=== PATIENT | female | born 1970 | race Caucasian/White ===

== ENCOUNTER 2016-11-24 16:30 | Inpatient (IN) | payer MEDICARE ==
[~2016-11-24] VITALS: Ht 160 cm; Wt 49.1 kg
--- NOTE | ~2016-11-24 | OP ---
PATIENT NAME: ANNELIESE MULLER MEDICAL RECORD: [id number] :68 LOCATION:D. D.2101 ADMISSION DATE:11/24/16 SURGEON: LINO GAGE MD DATE OF OPERATION: 11/27/2016 PREOPERATIVE DIAGNOSES: Hemorrhage, anemia, malfunctioning left upper extremity AV access. POSTOPERATIVE DIAGNOSES: Hemorrhage anemia, malfunctioning left upper extremity AV access. PROCEDURES: Insertion of tunneled 19-cm hemodialysis catheter via right internal jugular vein, ultrasound and fluoroscopic guidance. SURGEON: Lino Gage MD TEENAGE PROGRAM DIRECTOR: ANESTHESIA: General via LMA. IMPLANTATION: A 19-cm HemoSplit hemodialysis catheter. DISPOSITION: Awake to PACU. INDICATIONS FOR THE PROCEDURE: Mrs. Muller is a 46-year-old female with a history of metastatic cervical cancer, who underwent radiation therapy in the past. She developed a colonic fistula, which was taken down in [place] over the past year. She has developed a GI hemorrhage along with weakness and fatigue and was being treated in the hospital. She unfortunately developed a malfunction with her left upper extremity AV fistula and in order for her to gain durable hemodialysis access, a catheter was needed. The risks, alternatives and benefits were discussed. Her fistulas are in her left upper extremity, therefore, we decided to place into the right chest. Our hope is that we can rescue her AV fistula, either with a hybrid procedure or a new access placement. PROCEDURE IN DETAIL: After positive identification, informed consent was obtained, the patient in the operating room, laid supine on the operating table. Monitoring lines included EKG pads and a blood pressure cuff. General anesthesia was induced via LMA intubation. Antibiotics were ongoing. Dr. Ruelas from gynecology did an exam under anesthesia in the lithotomy position. Once this procedure was terminated, the patient was placed in a supine position. The neck was prepped and draped in a 2-stage process with alcohol and chlorhexidine to minimize infection. Towels were placed. The drape was placed. Surgical timeout was performed and all members agreed to proceed. We began the procedure by placing the patient in Trendelenburg position. After this was done, utilizing ultrasound, the right internal jugular vein was localized. She was quite dry. A little bit more Trendelenburg was used and this was accessed with Seldinger technique with one stick. Guidewire was placed into the central system. Next, a 19-cm HemoSplit catheter was brought to the field and after 2 new towels were placed on the chest, the catheter was laid upon the chest wall and the tip was placed in the upper part of the right atrium. An exit site was placed. The catheter was tunneled from the exit site to the Seldinger site. We next dilated the tract from the Seldinger site to the OPERATIVE REPORT [id number] ANNELIESE MULLER central system in sterile fashion. After this, the peel-away sheath were placed and the HemoSplit catheter was placed down to the central system. It flushed well with brisk and without issues. The catheter was then visualized on fluoroscopy and manipulated to ensure that there was a smooth course without any evidence of kinking. The cuff was subdermal. We next affixed the catheter to the skin with Dermalon in standard fashion. The catheter was then flushed again and briskly returned blood and aspirated without any issues. It was then hep-locked in standard fashion intact. The Seldinger site was closed in 2 layers, first layer with Monocryl and skin glue and then a dressing on top. Mrs. Muller was awakened from anesthesia without incident. All sponge, instrument, needle counts were reported to be correct. TRANSINT:[id number] Voice Confirmation ID: [id number] DOCUMENT ID: [id number] LINO GAGE MD CC: [id number] DICTATION DATE: 11/27/161416 JAR FILLER: 11/27/162111 ADM IN [facility] [address] [place] [address]
--- NOTE | 2016-11-24 16:30 | NUR ---
1615 RECEIVED PATIENT TO ROOM 2132 VIA RODNEY FROM [facility] IN [facility]. PATIENT ALERT/ORIENTED, RESP EVEN AND UNLABORED. PATIENT TRANSFERED HERE DUE TO DIALYSIS WAS UNABLE TO ACCESS FISTULA IN LEFT ARM. AT BEDSIDE AT THIS TIME EXAMINING FISTULA TO LEFT ARM. PATIENT ABLE TO PROVIDE HX FOR . ASSESSMENT COMPLETE AT THIS TIME. CALL LIGHT PLACED WITHIN REACH. SKIN - BUTTOCKS AND SACRUM/COCCYX AREA RED, SLIGHT EXCORIATION NOTED. REDNESS IS BLANCHABLE. PATIENT WEARS BRIEFS DUE TO STRESS INCONTINENCE. NO DISRESS.
[2016-11-24 16:40] VITALS: BP 114/62; BMI 16.6
[2016-11-24] MEDS ORDERED: FLAGYL250 MG PO (17:20)
[2016-11-24] MEDS ORDERED: FLORANEX / LACT1 TAB PO (17:20)
[2016-11-24] MEDS ORDERED: MERREM 500 MG/500 MG IV (17:21)
[2016-11-24] MEDS ORDERED: LOVENOX30 MG/0.3 SC (17:21)
[2016-11-24] MEDS ORDERED: LEVAQUIN500 MG PO (17:21)
[2016-11-24] MEDS ORDERED: CELEXA10 MG PO (17:22)
[2016-11-24] MEDS ORDERED: IPRAT-ALBUT 0.5-3 ML UPD (17:22)
[2016-11-24] MEDS ORDERED: BUMEX2 MG PO (17:23)
[2016-11-24] MEDS ORDERED: PROTONIX40 MG PO (17:23)
[2016-11-24] MEDS ORDERED: GABAPENTIN100 MG PO (17:26)
[2016-11-24] MEDS ORDERED: MEGACE400 MG/10 PO (17:26)
[2016-11-24] MEDS ORDERED: OXYCODONE HCL E20 MG PO (17:26)
[2016-11-24] MEDS ORDERED: FOLIC ACID1 MG PO (17:27)
[2016-11-24] MEDS ORDERED: METOPROLOL TART25 MG PO (17:27)
[2016-11-24] MEDS ORDERED: VITAMIN B-121000 MCG PO (17:27)
[2016-11-24] MEDS ORDERED: REQUIP0.5 MG PO (17:28)
[2016-11-24] MEDS ORDERED: COLACE100 MG PO (17:28)
[2016-11-24] MEDS ORDERED: MIDODRINE HCL5 MG PO (17:29)
[2016-11-24] MEDS ORDERED: MEPHYTON5 MG PO (17:29)
[2016-11-24] MEDS ORDERED: SYNTHROID100 MCG PO (17:30)
[2016-11-24] MEDS ORDERED: NEPHRO-VITE RX1 TAB PO (17:30)
[2016-11-24] MEDS ORDERED: FLAXSEED OIL1000 MG PO (17:30)
[2016-11-24] MEDS ORDERED: TUMS500 MG PO (17:30)
[2016-11-24] MEDS ORDERED: RENAGEL800 MG PO (17:31)
[2016-11-24] MEDS ORDERED: MULTIPLE VITAMI1 TA1 PO (17:31)
--- NOTE | 2016-11-24 18:27 | NUR ---
RESTING IN BED, CONSUMING PM MEAL AT THIS TIME. CALL LIGHT WITHIN REACH. DENIES NEEDS. NO DISTRESS.
[2016-11-24 18:52] LABS: ANION GAP 18.2 mmol/L (8-16); CALCIUM 8.8 mg/dL (8.5-10.1); CARBON DIOXIDE 18.8 mmol/L (21.0-32.0); CREATININE - SERUM 8.8 mg/dL (0.6-1.3)
--- NOTE | 2016-11-24 19:38 | NUR ---
INITIAL ROUNDS COMPLETED. PT DENIES ANY DISCOMFORT. WILL CONTINUE TO MONITOR.
[2016-11-24 21:20] VITALS: BP 105/41
--- NOTE | 2016-11-24 23:30 | NUR ---
ASSESSMENT COMPLETED AT 2009 HRS. PT DENIED ANY DISCOMFORT. VSS. IV TO R WRIST SL. LAVF WITH GOOD BRUIT AND THRILL. L LOWER ABD COLOSTOMY NOTED. LUNGS DIMINISHED IN BASES BILAT. ELIZALDE. PM MEDS GIVEN. PT CURRENTLY RESTING WITH EYES CLOSED. RESP EVEN AND REGULAR. SR UP X2, CALL LIGHT WITHIN REACH.
[2016-11-25 00:30] VITALS: BP 124/50
--- NOTE | 2016-11-25 01:18 | NUR ---
PT RESTING WITH EYES CLOSED. RESP EVEN AND REGULAR. SR UP X2, CALL LIGHT WITHIN REACH.
--- NOTE | 2016-11-25 02:34 | NUR ---
PT RESTING WITH EYES CLOSED. RESP EVEN AND REGULAR. SR UP X2, CALL LIGHT WITHIN REACH.
[2016-11-25 04:30] VITALS: BP 119/50
--- NOTE | 2016-11-25 04:40 | NUR ---
PT AWAKE; DENIES ANY DISCOMFORT. WILL CONTINUE TO MONITOR.
--- NOTE | 2016-11-25 06:35 | NUR ---
VSS THROUGHOUT NIGHT. PT DENIED ANY DISCOMFORT. NEEDS MET; WILL CONTINUE TO MONITOR.
--- NOTE | 2016-11-25 07:20 | NUR ---
RESTING IN BED WITH NO COMPLAINTS AT PRESENT TIME. IN ENTERIC ISOLATION FOR C DIFF. PATIENT HAS BEEN INSTRUCTED THAT WE NEED STOOL SAMPLE. ON ROOM AIR. RIGHT WRIST SEEN WITH SALINE LOCK. LEFT AVF WITH + BRUIT AND THRILL. WILL CONTINUE TO MONITOR.
[2016-11-25 09:10] VITALS: BP 131/52
[2016-11-25 12:00] VITALS: BP 85/44
[2016-11-25 12:11] LABS: BASOPHILS 0.1 % (0.0-2.0); EOSINOPHILS 1.8 % (0-7); HEMOGLOBIN 8.7 g/dL (12-16); IMMATURE GRANULOCYTES 1.4 % (0-5); LYMPHOCYTES 8.4 % (15-50); MCH 30.7 pg (26.0-34.0); MCHC 31.1 g/dL (31.0-37.0); MCV 98.9 fL (80.0-100.0); MEAN PLATELET VOLUME 10.3 fL (7.4-10.4); NEUTROPHILS 83.3 % (40-80); PLATELET COUNT 128 10x3/uL (130-400); RBC 2.83 10x6/uL (4.00-5.40); RDW 14.4 % (11.5-14.5); WBC 9.5 10x3/uL (4.8-10.8)
[2016-11-25 12:31] LABS: ALBUMIN 2.7 g/dL (3.4-5.0); ANION GAP 20.5 mmol/L (8-16); BILIRUBIN - TOTAL 0.83 mg/dL (0.2-1.3); CALCIUM 9.1 mg/dL (8.5-10.1); CREATININE - SERUM 9.1 mg/dL (0.6-1.3); MAGNESIUM - SERUM 1.6 mg/dL (1.8-2.4); PHOSPHOROUS 4.2 mg/dL (2.5-4.9); POTASSIUM - SERUM 5.5 mmol/L (3.5-5.1); PROTEIN - SERUM 6.2 g/dL (6.4-8.2)
[2016-11-25 16:00] VITALS: BP 110/47
[2016-11-25 20:19] VITALS: BP 139/90
--- NOTE | 2016-11-25 22:20 | NUR ---
INITIAL ROUNDS COMPLETED AT 1920 HRS. PT DENIED ANY DISCOMFORT. ASSESSMENT COMPLETED AT 2020 HRS. VSS. IV TO R WRIST SL. LUNGS ESSENTILAAY CTA. COLOSTOMY LEAKING. NEW COLOSTOMY APPLIED AND STOOL SAMPLE SENT TO LAB. LARGE BLOT CLOTT APPROX SIZE OF A TANGERINE NOTED IN BRIEFS AND SMALL AMOUNT OF BLOOD OOZING FROM VAGINA PT CLEANED. STATES HAS NOT HAD A HYSTERECTOMY AND HAS NOT HD A PERIOD FOR APPROX 9 YS. PM MEDS GIVEN. BRIEF WITH SMALL BLOT CLOTS NOTED. PT CLEANED AND OB PAD PLACED WITH BRIEF. RENAL SERVICE ALLED AT 2215 HRS WITH Lupe JACKSON CAREER AND GUIDANCE COUNSELOR RETURNING CALL. INFORMED OF LARGE CLOTS IN STEFAN AREA. NEW ORDERS RECEIVED AND NOTED.
--- NOTE | 2016-11-25 22:50 | NUR ---
16FR JE[facility]APT[facility] PLACED WITH BLOOD RETURN. AWAITING LAB RESULTS. PT TOLERATED ACTIVITY WELL.
[2016-11-25 23:42] LABS: BASOPHILS 0.1 % (0.0-2.0); EOSINOPHILS 3.1 % (0-7); IMMATURE GRANULOCYTES 1.3 % (0-5); LYMPHOCYTES 9.9 % (15-50); MCH 31.1 pg (26.0-34.0); MCHC 32.3 g/dL (31.0-37.0); MCV 96.5 fL (80.0-100.0); MEAN PLATELET VOLUME 10.3 fL (7.4-10.4); MONOCYTES 4.9 % (2-11); NEUTROPHILS 80.7 % (40-80); PLATELET COUNT 151 10x3/uL (130-400); RBC 2.28 10x6/uL (4.00-5.40); RDW 14.4 % (11.5-14.5); WBC 9.1 10x3/uL (4.8-10.8)
[2016-11-25 23:43] LABS: HEMOGLOBIN 7.1 g/dL (12-16)
[2016-11-25 23:51] LABS: APTT 42.4 SECONDS (22.8-39.4); INR 1.36 (0.85-1.17); PROTIME 16.6 SECONDS (11.6-15.0)
[2016-11-26] VITALS (8 sets, daily range): BP systolic 91–138; BP diastolic 35–59; Ht 160 cm; Wt 49.1 kg
--- NOTE | 2016-11-26 00:31 | NUR ---
Lupe JACKSON POULTRY RAISER NOTIFIED OF LABS AND BLODD IN [facility]. NEW ORDERS RECEIVED AND NOTED. VIT K 10MG PO GIVEN. BLODD CONSENTS SIGNED. IV TO R WRIST DC'D WITH CATHETER INTACT. NEW IV STRTED #2O TO INNER R FA WITH ATTEMPT X1. PT TOLERATED ACTIVITY WELL. WILL CONTINUE TO MONITOR.
--- NOTE | 2016-11-26 01:48 | NUR ---
LAB CALLED AT 0040 AND 0145. INFORMED NEED TO GIVEN 2 UNITS PRBC'S MARY.
--- NOTE | 2016-11-26 02:20 | NUR ---
LAB HERE TO DRAW TYPE AND CROSSMATCH.
--- NOTE | 2016-11-26 04:17 | NUR ---
PT CONTINUES TO OOZE BLOOD AROUND JEAN-BAPTIST[facility]. BED LINENS CHANGED. VSS, 1ST UNIT OF PRBC'S INITIATED. WILL CONTINUE TO MONITOR.
--- NOTE | 2016-11-26 06:24 | NUR ---
VSS DURING BLOOD TRANSFUSION. NO REACTION NOTED. CONTINUES TO OOZE BLODD FRON STEFAN AREA. NEEDS MET; WILL CONTINUE TO MONITOR.
[2016-11-26 07:55] LABS: BASOPHILS 0.1 % (0.0-2.0); EOSINOPHILS 2.7 % (0-7); HEMOGLOBIN 7.8 g/dL (12-16); IMMATURE GRANULOCYTES 1.6 % (0-5); LYMPHOCYTES 10.8 % (15-50); MCH 30.6 pg (26.0-34.0); MCHC 32.5 g/dL (31.0-37.0); MEAN PLATELET VOLUME 10.3 fL (7.4-10.4); NEUTROPHILS 79.8 % (40-80); PLATELET COUNT 155 10x3/uL (130-400); RBC 2.55 10x6/uL (4.00-5.40); RDW 15.4 % (11.5-14.5)
[2016-11-26 08:02] LABS: MCV 94.1 fL (80.0-100.0); WBC 11.7 10x3/uL (4.8-10.8)
[2016-11-26 08:03] LABS: ANION GAP 21.2 mmol/L (8-16); CARBON DIOXIDE 16.4 mmol/L (21.0-32.0); CREATININE - SERUM 9.5 mg/dL (0.6-1.3); POTASSIUM - SERUM 5.6 mmol/L (3.5-5.1)
--- NOTE | 2016-11-26 09:30 | NUR ---
PT LEAVING FLOOR TO ATTEMPT DIALYSIS.
--- NOTE | 2016-11-26 10:30 | NUR ---
PATIENT PATHWAYS - Patient's in-center unit is [facility] on MWF 3rd shift. Medical records forwarded to the unit for their records. Will cont to monitor for further orders/needs regarding OPHD. BMM PRL
--- NOTE | 2016-11-26 10:56 | NUR ---
PT C/O SEVERE PELVIC/VAGINAL PAIN. PROVIDED PT WITH PRN OXYCONTIN. PT VOICED THANKS. PICKED UP PTS UNIT OF BLOOD AND BROUGHT TO DIALYSIS FOR THEM TO TRANSFUSE. PT DENIES ANY FURTHER NEEDS AT THIS TIME. WILL CTM.
--- NOTE | 2016-11-26 12:16 | NUR ---
RAPID RESPONSE CALLED DOWN IN DIALYSIS. TRANSFERRED PT BACK TO FLOOR. PT HERE NOW RR NONLABORED WITH BREATHING MASK ON NON REBREATHER @15L. 100% PULSE OX. BP 91/52 VIA R.ARM. HR 113. ORDERS BEING OBTAINED NOW. WILL CTM CLOSELY.
[2016-11-26 12:57] LABS: HEMATOCRIT 25.3 % (36.0-48.0); HEMOGLOBIN 8.3 g/dL (12-16); MCH 30.3 pg (26.0-34.0); MCHC 32.8 g/dL (31.0-37.0); MCV 92.3 fL (80.0-100.0); MEAN PLATELET VOLUME 10.7 fL (7.4-10.4); PLATELET COUNT 107 10x3/uL (130-400); RBC 2.74 10x6/uL (4.00-5.40); RDW 15.4 % (11.5-14.5); WBC 20.3 10x3/uL (4.8-10.8)
--- NOTE | 2016-11-26 13:05 | NUR ---
PT RESTING QUIETLY IN BEDSIDE CHAIR. REMOVED NONREBREATHER MASK ITS NOT NEEDED. RR NONLABORED ON RA. 100% O2SAT. HR 122. BP 98/55 VIA R.ARM. WILL CTM.
[2016-11-26 13:17] LABS: ANION GAP 16.2 mmol/L (8-16); CARBON DIOXIDE 20.8 mmol/L (21.0-32.0); CREATININE - SERUM 5.8 mg/dL (0.6-1.3)
[2016-11-26 13:27] LABS: LYMPHOCYTES 3 % (15-50); MONOCYTES 5 % (2-11); NEUTROPHILS 91 % (40-80); PLATELET ESTIMATE DECREASED
--- NOTE | 2016-11-26 14:35 | NUR ---
WAITING FOR RENAL TO CALL BACK REGARDING PTS STATUS. PT IS STABLE BUT STILL HYPOTENSIVE, HR TACHYCARDIC. WBC HAS INCREASED GREATLY. WILL CTM.
--- NOTE | 2016-11-26 15:04 | NUR ---
PAGED CONCRETE SAW OPERATOR RENAL AGAIN. STILL WAITING TO HEAR BACK.
--- NOTE | 2016-11-26 16:17 | NUR ---
BLOOD CULTURES BEING DRAWN AND US TECH AT BEDSIDE FOR TRANSVAGINAL TEST. PT REQUESTED AND PROVIDED WITH PRN PAIN IV MED FOR BREAKTHROUGH PAIN. PT VOICED THANKS. PT HADNT EATEN MUCH TODAY BUT FINALLY AGREED TO EAT SOME VANILLA WAFERS AND VANILLA PUDDING AND WAS PROVIDED WITH IT. CL IN REACH. WILL CTM.
--- NOTE | 2016-11-26 16:35 | NUR ---
Patient Name: ANNELIESE RAMIRES Admission Status: Elective Accout number: [id number] Admission Date: 11-24-2016 : 1970 Admission Diagnosis: Attending: NARINDER Current LOS: 2 Anticipated DC Date: Planned Disposition: Nursing Facility [facility] Primary Insurance: MEDICARE A & B PLANNED EXTERNAL PROVIDER: [facility] MEDICAID BED Discharge Planning Comments: * Is the patient Alert and Oriented? Yes 0 * How many steps to enter\exit or inside your home? NONE 0 * PCP [facility] 0 * Pharmacy [facility] 0 * Preadmission Environment Detention Group Home 0 * Facility Name [facility] 0 * ADLs Partial Dependent 0 * Partial ADLs (Assistance needed) Bathing Medication Management 0 * Equipment Walker Wheelchair 0 * Other Equipment ALL EQUIPMENT PROVIDED BY FACILITY 0 * List name and contact numbers for known caregivers / representatives who currently or will assist patient after discharge: JEROD HERNANDEZ, MOTHER, 0 * Community resources currently utilized Other 0 * Please name any agencies selected above. OUTPATIENT DIALYSIS, [facility] [place] M/W/, 2:00PM, [facility] 0 * Additional services required to return to the preadmission environment? No 0 * Can the patient safely return to the preadmission environment? Yes 0 * Has this patient been hospitalized within the prior 30 days at any hospital? No 0 CM MET WITH PT IN ROOM TO DISCUSS DISCHARGE PLANNING AND NEEDS. PT REPORTS LIVING AT [facility], PARTIALLY DEPENDENT ON STAFF THERE. PT USES A WALKER AND WHEELCHAIR PROVIDED BY [facility]. PT DENIES DISCHARGE NEEDS, REPORTS FACILITY WILL PICK HER UP FOR DISCHARGE HOME. PT REPORTS FACILITY TAKES HER TO AND FROM DIALYSIS ON // SCHEDULE. FOR DISCHARGE, NURSE REPORT TO BE CALLED TO [facility], , FAX DISCHARGE INFORMATION TO [facility] AT [phone]. [facility]. Assembly Line Driver: Masood Hagan
--- NOTE | 2016-11-26 17:43 | NUR ---
FINDINGS FROM US TRANSVAGINAL NOT CONCLUSIVE, READING RECOMMENDED A CT. CALLED RATING EXAMINER ODETTE MEZA AND REC'D ORDER FOR PELVIC CT WITHOUT CONTRAST. ORDERS PUT IN AND NOW AWAITING TEST. WILL CTM. PT STILL HAVING VAGINAL BLEEDING AND CLOTS BUT HAS SLOWED DOWN SOME.
--- NOTE | 2016-11-26 18:24 | NUR ---
PT DISLODGED BOTH NEEDLES DURING DIALYSIS AND REQUESTED ASSISTANCE IN ORDER TO HELP STOP BLEEDING AND STABLIZE BP. COULD NOT REACH MORE GAUZE DUE TO HOLDING PRESSURE ON SITES. PT RESPONDED WELL TO TEAM RESPONSE AND DISCONTINUED TX AFTER ABOUT TWO HOURS WITH NO FLUID OFF DUE TO LOW BP AND UF OFF MIDWAY WITH NS BOLUS.
--- NOTE | 2016-11-26 19:22 | NUR ---
RESUMED CARE OF PT, SLEEPING, ISO-C-DIFF, R.WRIST IV-SL, [id number], CALL LIGHT IN REACH, BED IS LOW, SRX2, WILL CONTINUE TO MONITOR
[2016-11-27] VITALS: BP 92/34
--- NOTE | 2016-11-27 01:49 | NUR ---
PT LAYING IN BED NO DISTRESS OBSERVED CALL LIGHT IN REACH SRX2 WILL MONITOR
[2016-11-27 04:00] VITALS: BP 110/45
[2016-11-27 06:09] LABS: BASOPHILS 0.1 % (0.0-2.0); IMMATURE GRANULOCYTES 0.7 % (0-5); LYMPHOCYTES 8.2 % (15-50); MCH 30.5 pg (26.0-34.0); MCHC 32.9 g/dL (31.0-37.0); MCV 92.5 fL (80.0-100.0); MEAN PLATELET VOLUME 10.7 fL (7.4-10.4); MONOCYTES 6.5 % (2-11); NEUTROPHILS 82.5 % (40-80); PLATELET COUNT 94 10x3/uL (130-400); RDW 15.7 % (11.5-14.5)
[2016-11-27 06:19] LABS: ANION GAP 13.9 mmol/L (8-16); CALCIUM 8.3 mg/dL (8.5-10.1); CARBON DIOXIDE 24.4 mmol/L (21.0-32.0); CREATININE - SERUM 6.8 mg/dL (0.6-1.3); POTASSIUM - SERUM 4.3 mmol/L (3.5-5.1)
[2016-11-27 06:26] LABS: HEMATOCRIT 16.1 % (36.0-48.0); HEMOGLOBIN 5.3 g/dL (12-16); RBC 1.74 10x6/uL (4.00-5.40); WBC 7.7 10x3/uL (4.8-10.8)
[2016-11-27 08:20] VITALS: BP 98/41
--- NOTE | 2016-11-27 09:05 | NUR ---
INITIATED PTS BLOOD TRANSFUSION. INFUSING UNIT 10/30 ORDERED. PRE VITALS STABLE BP 96/41, HR 80, RR 15 NONLABORED ON RA, TEMP 98.3. PT RESTING AND STATES SHE IS COMFORTABLE WATCHING TV. BLOOD INFUSING VIA R.WRIST PIV WITH DRSG CDI AND SWAB CAPS IN USE. CONSENTS OBTAINED FOR HEMOSPLIT CATHETER PLACEMENT LATER TODAY AND PT IS NPO, PT VERBALIZED UNDERSTANDING AND DENIES ANY CURRENT CONCERNS OR QUESTIONS. MORNING MEDICATIONS HELD R/T NPO STATUS. SHIFT ASSESSMENT COMPLETED. PT IS STILL BLEEDING VAGINALLY AND PASSING MANY CLOTS. PRIMARY DOCTOR IS AWARE AND PT IS WAITING TO BE SEEN BY PIPE COVERING MOLDER CONSULT. PT HAS COLOSTOMY BAG IN PLACE AND PROPERLY DRAINING. PT DENIES ANY CURRENT PAIN OR NEEDS. WILL CONTINUE TO MONITER AT BEDSIDE FOR FIRST 15 MINS PER PROTOCOL OF BLOOD TRANSFUSION. NO FURTHER NEEDS AT THIS TIME.
[2016-11-27 12:07] VITALS: BP 103/46
--- NOTE | 2016-11-27 12:31 | NUR ---
INITIATED PTS SECOND UNIT OF BLOOD. OR CALLED FOR PT. PT TRANSFERRED TO SX AND WILL REMAIN RECIEVING BLOOD THERE. VSS STILL AND NO REACTION NOTED THROUGHOUT FIRST TRANSFUSION. PT NOW IN SX. WILL CONTINUE WITH PLAN OF CARE.
--- NOTE | 2016-11-27 15:08 | NUR ---
PT ARRIVED BACK TO ROOM. BP 110/58 VIA R.ARM. HR 70. TEMP 98.1 O2 SAT 98% WITH NC @2L IN PLACE. PT HAS NEW R.HEMOSPLIT CATHETER IN PLACE WITH DRSG CDI AND SWAB CAPS IN USE. [place]B[facility]T[place] IN PLACE NOW AND SECURED TO INNER THIGH WITH STAT LOCK IN PLACE. DRAINING BLOOD WITH NOTED CLOTS. PT IS ALERT AND ORIENTED AND REQUESTING SOMETHING TO EAT. WILL MAKE SURE SHE IS ALLOWED AND CTM.
[2016-11-27 16:07] VITALS: BP 103/43
--- NOTE | 2016-11-27 17:02 | NUR ---
PT LYING IN BED RESTING COMFORTABLY. DIALYSIS NURSE AT BEDSIDE PT RECIEVING DIALYSIS VIA R.CHEST HEMASPLIT. PT ALSO GONNA RECIEVE UNIT 3/3 OF BLOOD WHILE HAVING DIALYSIS. PT REFUSED HER MEDS THAT SHE PREVIOUSLY MISSED TODAY R/T BEING NPO AND STATES SHE WILL JUST TAKE THEM TOMORROW. PT DENIES ANY CURRENT PAIN OR FURTHER NEEDS AT THIS TIME. CL IN REACH, BED IN LOWEST, SIDE RAILS X2. WILL CTM.
[2016-11-27 17:57] LABS: BASOPHILS 0.1 % (0.0-2.0); EOSINOPHILS 0.9 % (0-7); IMMATURE GRANULOCYTES 0.9 % (0-5); LYMPHOCYTES 5.5 % (15-50); MCH 29.6 pg (26.0-34.0); MCHC 33.8 g/dL (31.0-37.0); MEAN PLATELET VOLUME 10.2 fL (7.4-10.4); MONOCYTES 4.4 % (2-11); NEUTROPHILS 88.2 % (40-80); PLATELET COUNT 109 10x3/uL (130-400); RDW 16.9 % (11.5-14.5)
[2016-11-27 17:59] LABS: HEMATOCRIT 30.8 % (36.0-48.0); HEMOGLOBIN 10.4 g/dL (12-16); MCV 87.7 fL (80.0-100.0); RBC 3.51 10x6/uL (4.00-5.40); WBC 14.9 10x3/uL (4.8-10.8)
[2016-11-27 18:33] LABS: GLUCOSE 83 mg/dL (74-106)
[2016-11-27 18:42] LABS: CHLORIDE - SERUM 99 mmol/L (98-107); SODIUM 137 mmol/L (136-145)
[2016-11-27 18:47] LABS: CALC OSMOLALITY 273 mosm/kg (275-300); CARBON DIOXIDE 31.4 mmol/L (21.0-32.0); CREATININE - SERUM 0.4 mg/dL (0.6-1.3); UREA NITROGEN 15 mg/dL (7-18); eGFR NON AFRICAN AMERICAN > 90 mL/min (90-120)
[2016-11-27 18:48] LABS: POTASSIUM - SERUM 2.6 mmol/L (3.5-5.1)
--- NOTE | 2016-11-27 18:57 | NUR ---
Mrs. Muller had bedside hemodialysis today via her right chest Hemosplit. Average blood flow was 400 mls/min [place]. Transfused the third unit of prbc's. Two previously transfused. Removed the 1050 mls from the three units of prbc's, volume from any fluids given as well as a net of 600 mls. Pt. was a little hypotensive during treatment. Post vital signs were: B/P: 98/39, HR:88, Temp: 98.4, Resps: 20.
[2016-11-27 19:00] VITALS: BP 91/38
--- NOTE | 2016-11-27 19:05 | NUR ---
DIALYSIS NURSE ROXY AT BED SIDE, DIALYSIS COMPLETE. WILL CONT TO MONITOR.
--- NOTE | 2016-11-27 21:27 | NUR ---
HS MEDS GIVEN. COLOSTOMY BAG LEAKING, REMOVED OLD BAG, CLEANED PT AND REPLACED NEW BAG OVER STOMA. IV TO RIGHT FORARM LEAKING, IV REMOVED TIP INTACT. COVERED WITH 2X2 AND TAPE. WILL CONT TO MONITOR.
--- NOTE | 2016-11-27 22:21 | NUR ---
PT ROUNDED ON NO DISTRESS OBSERVED CALL LIGHT IN REACH SRX2 BED LOW AND LOKCED WILL MONITOR
--- NOTE | 2016-11-27 23:04 | NUR ---
IV RESITED TO RIGHT WIRST, 22 GUAGE, FIRST ATTEMPT. PT TOLERATED WELL.
[2016-11-28] VITALS: BP 88/34
[2016-11-28 04:00] VITALS: BP 87/37
--- NOTE | 2016-11-28 04:22 | NUR ---
RESTING WITH EYES CLOSED, RESPERATIONS EVEN, NO S/S DISTRESS NOTED.
[2016-11-28 06:30] LABS: BASOPHILS 0.2 % (0.0-2.0); EOSINOPHILS 2.2 % (0-7); IMMATURE GRANULOCYTES 0.9 % (0-5); LYMPHOCYTES 6.2 % (15-50); MCH 29.6 pg (26.0-34.0); MCHC 33.6 g/dL (31.0-37.0); MCV 88.1 fL (80.0-100.0); MEAN PLATELET VOLUME 10.4 fL (7.4-10.4); MONOCYTES 6.9 % (2-11); NEUTROPHILS 83.6 % (40-80); PLATELET COUNT 120 10x3/uL (130-400); RDW 18.1 % (11.5-14.5)
[2016-11-28 06:41] LABS: HEMATOCRIT 24.4 % (36.0-48.0); HEMOGLOBIN 8.2 g/dL (12-16); RBC 2.77 10x6/uL (4.00-5.40); WBC 10.2 10x3/uL (4.8-10.8)
[2016-11-28 06:45] LABS: ANION GAP 10.5 mmol/L (8-16); CARBON DIOXIDE 26.6 mmol/L (21.0-32.0); POTASSIUM - SERUM 3.1 mmol/L (3.5-5.1)
[2016-11-28 06:52] LABS: CALCIUM 6.9 mg/dL (8.5-10.1); CREATININE - SERUM 3.2 mg/dL (0.6-1.3)
[2016-11-28 07:48] VITALS: BP 94/34
--- NOTE | 2016-11-28 08:17 | NUR ---
PT IS ALERTT. ASSESSMENT DONE PER FLOWSHEET. NO OTHER NEEDS AT THIS TIME WILL CONTINUE TO MONTIOR.
--- NOTE | 2016-11-28 08:40 | OP ---
PATIENT NAME: ANNELIESE RAMIRES MEDICAL RECORD: [id number] :[birth year] LOCATION:D. D.2101 ADMISSION DATE:11/24/16 SURGEON: ZOË OSUNA MD DATE OF OPERATION: 11/27/2016 PREOPERATIVE DIAGNOSES: Vaginal bleeding, status post radiation for advanced cancer of the cervix. POSTOPERATIVE DIAGNOSES: Hematuria and radiation changes per vagina, cervix and pelvis. PROCEDURE: Examination under anesthesia, endocervical curettage and urethral catheterization. SURGEON: Zoë Osuna MD ANESTHESIA: General. FINDINGS: No vaginal bleeding seen, severe hematuria, marked induration of the entire pelvis from sidewall to sidewall from previous radiation therapy. ESTIMATED BLOOD LOSS: None from this procedure. COMPLICATIONS: None. Upon completion of this procedure, Dr. Dunn proceeded with his portion of the surgery. OPERATIVE NOTE: The patient was taken to the OR and under adequate general anesthesia, prepped and draped in the usual manner for vaginal procedures with an external prep only. Exam under anesthesia revealed the above listed findings; markedly bloody urine was seen coming from the urethra. Upon inspection of the vagina, there was no blood seen. Evaluation of the cervix revealed it to be closed. A gentle endocervical curettage was performed. Bimanual examination revealed marked induration from sidewall to sidewall, unable to delineate uterus from the other pelvic organs. Rectal confirms the above. At the end of procedure, all instruments were removed. A Cisneros catheter was placed and Dr. Dunn proceeded with his portion of the surgery. TRANSINT:[id number] Voice Confirmation ID: [id number] DOCUMENT ID: [id number] ZOË OSUNA MD at 0840 CC: [id number] DICTATION DATE: 11/27/16 1343 COLOR CHECKER ROVING OR YARN: 11/27/16 1409 ADM IN [place] [id number] [place] [address]
--- NOTE | 2016-11-28 10:59 | NUR ---
Nutrition follow-up: Pt currently NPO for procedure PO intake of renal diet has been ~75% of some meals Labs reviewed Wt: 106# RDN following.
[2016-11-28 11:35] VITALS: BP 97/42
--- NOTE | 2016-11-28 15:08 | NUR ---
IV access-multiple attempts to place IV-unsuccessful. Indy Singh RN
--- NOTE | 2016-11-28 19:26 | NUR ---
FIRST UNIT OF BLOOD FINISHED INFUSING, LINE FLUSHING WITH NS. VITALS REMAIN STABLE.
[2016-11-28 20:00] VITALS: BP 104/44
--- NOTE | 2016-11-28 23:00 | NUR ---
SECOND UNIT OF PRBCS INFUSING TO RIGHT CHEST HEMOSPLIT, VITALS STABLE, WILL CONT TO MONITOR.
[2016-11-29] VITALS: BP 104/43
--- NOTE | 2016-11-29 01:38 | NUR ---
SECOND UNIT OF BLOOD FINISHED INFUSING, VITALS STABLE, NO S/S ASVERSE REACTION NOTED.
[2016-11-29 04:00] VITALS: BP 113/59
--- NOTE | 2016-11-29 04:19 | NUR ---
LYING IN BED WITH EYES CLOSED, CALL LIGHT IN REACH. WILL CONTINUE WITH PLAN OF CARE.
[2016-11-29 04:58] LABS: BASOPHILS 0.2 % (0.0-2.0); EOSINOPHILS 2.6 % (0-7); IMMATURE GRANULOCYTES 1.1 % (0-5); LYMPHOCYTES 6.3 % (15-50); MCHC 34.3 g/dL (31.0-37.0); MCV 87.5 fL (80.0-100.0); MEAN PLATELET VOLUME 10.7 fL (7.4-10.4); MONOCYTES 6.1 % (2-11); NEUTROPHILS 83.7 % (40-80); RDW 18.1 % (11.5-14.5)
[2016-11-29 05:08] LABS: HEMATOCRIT 30.9 % (36.0-48.0); HEMOGLOBIN 10.6 g/dL (12-16); PLATELET COUNT 162 10x3/uL (130-400); RBC 3.53 10x6/uL (4.00-5.40); WBC 12.9 10x3/uL (4.8-10.8)
[2016-11-29 05:22] LABS: ANION GAP 13.4 mmol/L (8-16); CALCIUM 7.9 mg/dL (8.5-10.1); CARBON DIOXIDE 25.4 mmol/L (21.0-32.0)
[2016-11-29 05:25] LABS: CREATININE - SERUM 4.9 mg/dL (0.6-1.3); POTASSIUM - SERUM 3.8 mmol/L (3.5-5.1)
--- NOTE | 2016-11-29 07:51 | NUR ---
AM ROUNDING- PT SITTING UP IN BED FILLING OUT LUNCH MENU. ALERT AND ORIENTED. PT IS C/O VAGINA HURTING. ON ROOM AIR. IV SEEN TO RIGHT CHEST HEMOSLPIT WITH NS RUNNING AT KVO (10). PER REPORT FROM PROSTHETIC LAB TECHNICIAN NURSE YAMILA, NURSE GOT APPROVAL TO USE PTS BLUE PORT FOR IV FLUIDS AND MEDICATIONS. [facility] CATHETER SEEN WITH BLOOD TINGED URINE. LEFT RESERVE ARM FOR AVF, PT DIALYZES ON SATURDAY, SATURDAY, AND SATURDAY. PT HAS LEFT ABDOMEN COLOSTOMY. SCDS ARE AT BEDSIDE. PT IS IN CONTACT ISOLATION FOR C.DIFF. NO MONITOR. WILL CONTINUE TO MONITOR.
[2016-11-29 08:10] VITALS: BP 141/58
[2016-11-29 11:50] VITALS: BP 116/42
[2016-11-29 15:52] VITALS: BP 123/47
[2016-11-29] MEDS ORDERED: FLAGYL 500500 MG/100 IV (16:44)
[2016-11-29] MEDS ORDERED: VANCOMYCIN250 MG/51 PO (16:48)
[2016-11-29] MEDS ORDERED: OxyCONTIN PO (16:48)
[2016-11-29] MEDS ORDERED: BUPRENEX IV (16:48)
--- NOTE | 2016-11-29 16:55 | NUR ---
Patient Name: ANNELIESE RAMIRES Encounter No: [id number] : 1970 Primary Insurance: MEDICARE A & B Anticipated DC Date: 11-29-2016 Planned Disposition: Acute Care Hospital External Planned Provider: [facility] DCP follow-up note: LORRAINE LICONA RECEIVED ORDER FOR HOSPITAL DISCHARGE, SPOKE TO DR. ROBERTS WHO REPORTS PT NEEDS UROLOGY SERVICES THAT ARE NOT AVAILABLE AT [place], DR. ROBERTS WILL BE ACCEPTING DOCTOR AT [facility] IN [place]. LORRAINE CHAMPAGNE SPOKE TO PT WHO WAS WILLING FOR TRANFER AND SIGNED TRANSFER BACK AGREEMENT, PLACED IN PT CHART. LORRAINE CHAMPAGNE CALLED TAPER AND FLOATER WHO OBTAINED SHIPPING TEAM LEADER APPROVAL FROM [facility] FOR TRANSFER. LORRAINE CHAMPAGNE SPOKE TO SUHA OF [facility] BED CONTROL, , PT TO BE ACCEPTED AT [facility], BED 504, NURSE REPORT NUMBER [phone]. FACE SHEET AND TRANSFER BACK AGREEEMENT FAXED TO [facility] BED CONTROL, . BEDSIDE NURSE NOTIFIED. MAHI FAXED UPDATE TO [facility] WITH TRANSFER INFORMATION. PT TO BE ACCEPTED AT [facility], BED 504, NURSE REPORT NUMBER [phone], TRANSFER VIA AMBULANCE. Masood Hagan, CASE MANAGEMENT
--- NOTE | 2016-11-29 18:26 | NUR ---
PTS HEMOSPLIT (BLUE PORT) FOR IV ACCESS WAS HEPARIN LOCKED. PTS JEAN-BAPTISTE EMPTIED. PTS COLOSTOMY BAG EMPTIED. D/C PAPERWORK AND TRANSFER PAPERWORK EXPLAINED TO PT AND SIGNED, PLACED IN CHART WITH COPIES MADE. AWAITING AMBULANCE TO TRANSFER PT TO [facility].
--- NOTE | 2016-11-29 18:34 | NUR ---
PT D/C BY AMBULANCE VIA STRETCHER.
== END 2016-11-29 18:38 | DRG 987 ==
LOC: D.M2 16:30
PROVIDERS: Obstetrics & Gynecology; Surgery; ADMIT Internal Medicine Nephrology
PROC: B5131ZA Fluoroscopy of Right Jugular Veins using Low Osmolar Contrast, Guidance (ICD-10-PCS; 2016-11-27)
PROC: B543ZZA Ultrasonography of Right Jugular Veins, Guidance (ICD-10-PCS; 2016-11-27)
PROC: 0T9B70Z Drainage of Bladder with Drainage Device, Via Natural or Artificial Opening (ICD-10-PCS; principal; 2016-11-27 13:00)
PROC: 0UDB7ZZ Extraction of Endometrium, Via Natural or Artificial Opening (ICD-10-PCS; principal; 2016-11-27 13:00)
PROC: 05HM33Z Insertion of Infusion Device into Right Internal Jugular Vein, Percutaneous Approach (ICD-10-PCS; 2016-11-27 13:00)
DX: T82.898A Other specified complication of vascular prosthetic devices, implants and grafts, initial encounter (principal); N18.6 End stage renal disease; J18.9 Pneumonia, unspecified organism; I12.0 Hypertensive chronic kidney disease with stage 5 chronic kidney disease or end stage renal disease; A04.7 Enterocolitis due to Clostridium difficile; D62 Acute posthemorrhagic anemia; N93.8 Other specified abnormal uterine and vaginal bleeding; Y83.8 Other surgical procedures as the cause of abnormal reaction of the patient, or of later complication, without mention of misadventure at the time of the procedure; E11.22 Type 2 diabetes mellitus with diabetic chronic kidney disease; D63.1 Anemia in chronic kidney disease; E87.5 Hyperkalemia; C53.9 Malignant neoplasm of cervix uteri, unspecified; R31.9 Hematuria, unspecified; Z72.0 Tobacco use